=== PATIENT | female | born 1950 ===

== ENCOUNTER 2018-07-20 05:32 | Emergency (ER) | payer OTHER, SELFPAY ==
[2018-07-20 05:33] VITALS: BMI 32.9
[2018-07-20 05:51] VITALS: BP 140/85; PULSE 83; RESP 16; TEMP 97.4; O2SAT 99
--- NOTE | 2018-07-20 06:14 | ED PDOC ---
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 Patient states that she was just walking when 2 of the veins spontaneously started bleeding. On arrival to ED patient states that bleeding has stopped. She denies light headedness, dizziness, chest pain, shortness of breath, or palpi tations. Past Medical History Reviewed: Historical Data, Nursing Documentation, Vital Signs Vital Signs: Last Vital Signs Temp 97.4 F L 07/20/18 05:45 Pulse 83 07/20/18 05:45 Resp 16 07/20/18 05:45 BP 140/85 07/20/18 05:45 Pulse Ox 99 07/20/18 05:45 - Medical History PMH: Asthma, Deep Vein Thrombosis, HTN, Hypercholesterolemia, TIA Other PMH: Varicose Veins - Family History Family History: States: Unknown Family Hx - Immunization History Hx Tetanus Toxoid Vaccination: Yes Hx Influenza Vaccination: No (2014) Hx Pneumococcal Vaccination: No - Home Medications Home Medications: Ambulatory Orders Medication Instructions Recorded Albuterol 0.083% [Albuterol 3 ml IH PRN PRN 11/21/15 Sulfate 3 Ml] Atenolol/Chlorthalidone 1 tab PO DAILY 11/21/15 [Atenolol/Chlorthalidone 100 mg-25 mg] Simvastatin 40 mg PO DAILY 11/21/15 Cetirizine HCl [Zyrtec Allergy] 10 mg PO DAILY 04/01/16 Prednisone 50 mg PO DAILY #5 tablet 04/01/16 - Allergies Allergies/Adverse Reactions: Allergies Allergy/AdvReac Type Severity Reaction Status Date / Time No Known Allergies Allergy Verified 11/14/15 14:07 Review of Systems ROS Statement: Except As Marked, All Systems Reviewed And Found Negative Cardiovascular: Negative for: Chest Pain, Palpitations Respiratory: Negative for: Shortness of Breath Musculoskeletal: Positive for: Leg Pain (bleeding 2 veins left leg) Neurological: Negative for: Dizziness Physical Exam - Reviewed Nursing Documentation Reviewed: Yes Vital Signs Reviewed: Yes - Physical Exam Appears: Positive for: Well, Non-toxic, No Acute Distress Head Exam: Positive for: ATRAUMATIC, NORMOCEPHALIC Skin: Positive for: Normal Color, Warm, Dry Eye Exam: Positive for: EOMI, Normal appearance, PERRL Extremity: Positive for: Normal ROM, Other (varicose veins bilaterally; no active bleeding at this time). Negative for: Pedal Edema, Deformity Neurologic/Psych: Positive for: Alert, Oriented. Negative for: Motor/Sensory Deficits - Laboratory Results Result Diagrams: 07/20/18 06:22 - ECG O2 Sat by Pulse Oximetry: 99 (RA) Pulse Ox Interpretation: Normal Medical Decision Making Medical Decision Making: Time: 06:07 A/P: Resolved varicose vein bleeding * CBC 635AM CBC normal, will discharge home Scribe Attestation: Documented by Magdi Medina acting as a scribe for Fernando Ervin MD. Provider Scribe Attestation: All medical record entries made by the Scribe were at my direction and personally dictated by me. I have reviewed the chart and agree that the record accurately reflects my personal performance of the history, physical exam, medical decision making, and the department course for this patient. I have also personally directed, reviewed, and agree with the discharge instructions and d isposition. Disposition - Clinical Impression Clinical Impression: Bleeding from varicose vein - Patient ED Disposition Is Patient to be Admitted: No - Disposition Referrals: [facility] [Outside] Disposition: Routine/Home Disposition Time: 06:35 Condition: STABLE Instructions: Treatment of Varicose Veins of the Leg Forms: [facility] (German) Print Language: POLISH
[2018-07-20 06:31] LABS: HEMOGLOBIN 13.1 g/dL (12.0-16.0); MEAN CELL VOLUME 91.5 fl (81.0-99.0); MEAN CORPUSCULAR HEMOGLOBIN 30.4 pg (27.0-31.0); MEAN CORPUSCULAR HGB CONC 33.2 g/dL (33.0-37.0); RBC 4.32 Mil/uL (3.80-5.20); WHITE BLOOD COUNT 6.6 K/uL (4.8-10.8)
== END 2018-07-20 06:59 | disposition home or self-care (01) ==
LOC: H.ER 05:32
DX: I83.90 Asymptomatic varicose veins of unspecified lower extremity (principal); Z86.718 Personal history of other venous thrombosis and embolism